=== PATIENT | female | born 1990 | race Caucasian/White ===

== ENCOUNTER 2018-05-07 15:31 | Emergency (ER) | payer MEDICAID, OTHER ==
--- NOTE | 2018-05-07 15:40 | Emergency Department Report ---
Blank Doc - Documentation Documentation: This is a 28-year-old female that presents with HTN and headache. Patient was sent by Dr. Hedrick for r/o preeclampsia. Denies Hx of HTN. was done 04/23/2018. This initial assessment diagnostic orders/clinical plan/treatment(s) is/are subject to change based on patient's health status, clinical progression and re- assessment by fellow clinical providers in the ED. Further treatment and workup at subsequent clinical providers discretion. Patient/guardians urged not to elope from ED s their condition may be serious if not clinically assessed and managed. Initial orders include: 1-Patient sent to MAIN ED for further evaluation and treatment 2- Labs 3- UA
[2018-05-07] MEDS ORDERED: NACL 0.9% 1000 ML 1,000 ML IV ONE (16:52)
[2018-05-07] MEDS ORDERED: TORADOL IV ONE (16:52)
[2018-05-07] MEDS ORDERED: NORMODYNE IV ONE (16:52)
--- NOTE | 2018-05-07 16:55 | Emergency Department Report ---
ED General Adult HPI - General Chief complaint: High BP Stated complaint: HYPERTENSION Time Seen by Provider: 05/07/18 15:37 Source: patient Mode of arrival: Ambulatory Limitations: No Limitations - History of Present Illness Initial comments: Patient is a 28-year-old hyperactive female who is presenting with headache and elevated blood pressure. Patient is 14 days . Patient has a section. Patient states that she was sent home she's had mild headaches and on a follow-up visit today was noted to have elevated blood pressure. Dr. Apple Love the patient to the emergency department to be evaluated. Patient denies nausea vomiting fevers chills or neck stiffness. Patient states her abdominal discomfort is subsiding. She denies any dysuria. Severity scale (0 -10): 0 - Related Data Previous Rx's Medication Instructions Recorded Last Taken Type Ibuprofen [Motrin 600 MG tab] 600 mg PO Q8H PRN #30 tablet 08/11/15 12/23/15 Rx Multivitamin with Iron 1 each PO DAILY #30 tablet 08/11/15 04/24/18 10:00 Rx [Multivitamins with Iron] oxyCODONE /ACETAMINOPHEN [Percocet 1 tab PO Q6HR PRN #30 tablet 08/11/15 04/24/18 22:00 Rx 5/325] Famotidine [Pepcid] 20 mg PO BID #30 tablet 12/23/15 Unknown Rx Ondansetron [Zofran TAB] 4 mg PO Q8HR PRN #20 tablet 12/23/15 Unknown Rx Ferrous Sulfate 325 mg PO BID #30 tablet. 04/23/18 Unknown Rx Ibuprofen [Motrin] 600 mg PO Q8H PRN #30 tablet 04/23/18 Unknown Rx oxyCODONE /ACETAMINOPHEN [Percocet 1 tab PO Q6HR PRN #30 tablet 04/23/18 Unknown Rx 5/325] Labetalol [Normodyne TAB] 200 mg PO BID #30 tablet 05/07/18 Unknown Rx Allergies Allergy/AdvReac Type Severity Reaction Status Date / Time No Known Allergies Allergy Verified 02/02/18 18:43 ED Review of Systems ROS: Stated complaint: HYPERTENSION Other details as noted in HPI Comment: All other systems reviewed and negative ED Past Medical Hx - Past Medical History Hx Hypertension: No Hx Congestive Heart Failure: No Hx Diabetes: No Hx Deep Vein Thrombosis: No Hx Renal Disease: No Hx Sickle Cell Disease: No Hx Seizures: No Hx Asthma: No Hx COPD: No Hx HIV: No Additional medical history: Vaginal delivery x 1, 3 c-sections - Surgical History Additional Surgical History: x 3 - Social History Smoking Status: Never Smoker Substance Use Type: None - Medications Home Medications: Home Medications Medication Instructions Recorded Confirmed Last Taken Type Ibuprofen [Motrin 600 MG tab] 600 mg PO Q8H PRN #30 tablet 08/11/15 04/24/18 12/23/15 Rx Multivitamin with Iron 1 each PO DAILY #30 tablet 08/11/15 04/24/18 04/24/18 10:00 Rx [Multivitamins with Iron] oxyCODONE /ACETAMINOPHEN [Percocet 1 tab PO Q6HR PRN #30 tablet 08/11/15 0 04/24/18 04/24/18 22:00 Rx 5/325] Famotidine [Pepcid] 20 mg PO BID #30 tablet 12/23/15 04/24/18 Unknown Rx Ondansetron [Zofran TAB] 4 mg PO Q8HR PRN #20 tablet 12/23/15 04/24/18 Unknown Rx Ferrous Sulfate 325 mg PO BID #30 tablet. 04/23/18 Unknown Rx Ibuprofen [Motrin] 600 mg PO Q8H PRN #30 tablet 04/23/18 Unknown Rx oxyCODONE /ACETAMINOPHEN [Percocet 1 tab PO Q6HR PRN #30 tablet 04/23/18 Unknown Rx 5/325] Labetalol [Normodyne TAB] 200 mg PO BID #30 tablet 05/07/18 Unknown Rx ED Physical Exam - General Limitations: No Limitations General appearance: alert, in no apparent distress - Head Head exam: Present: atraumatic, normocephalic - Eye Eye exam: Present: normal appearance, PERRL, EOMI - ENT ENT exam: Present: normal orophraynx, mucous membranes moist - Neck Neck exam: Present: normal inspection, full ROM. Absent: tenderness, meningismus - Respiratory Respiratory exam: Present: normal lung sounds bilaterally. Absent: respiratory distress, wheezes, rales, rhonchi, stridor - Cardiovascular Cardiovascular Exam: Present: regular rate, normal rhythm. Absent: systolic murmur, diastolic murmur, rubs, gallop - GI/Abdominal GI/Abdominal exam: Present: soft, normal bowel sounds. Absent: distended, tenderness, guarding, rebound, rigid - Extremities Exam Extremities exam: Present: normal inspection - Back Exam Back exam: Present: normal inspection - Neurological Exam Neurological exam: Present: alert, oriented X3 - Psychiatric Psychiatric exam: Present: normal affect, normal mood - Skin Skin exam: Present: warm, dry, intact, normal color. Absent: rash ED Course Vital Signs 05/07/18 05/07/18 05/07/18 15:38 16:40 16:43 Temperature 98.8 F Pulse Rate 87 89 Respiratory 18 18 Rate Blood Pressure 148/98 151/91 Blood Pressure 151/91 [Left] O2 Sat by Pulse 100 100 100 Oximetry 05/07/18 05/07/18 05/07/18 16:45 17:00 17:15 Temperature Pulse Rate Respiratory Rate Blood Pressure 151/91 154/94 154/94 Blood Pressure [Left] O2 Sat by Pulse 100 100 99 Oximetry 05/07/18 05/07/18 05/07/18 17:29 17:31 17:45 Temperature Pulse Rate 89 Respiratory Rate Blood Pressure 151/91 154/94 154/94 Blood Pressure [Left] O2 Sat by Pulse 98 99 Oximetry 05/07/18 05/07/18 17:58 18:00 Temperature Pulse Rate 87 Respiratory 18 Rate Blood Pressure 119/78 Blood Pressure 119/78 [Left] O2 Sat by Pulse 99 99 Oximetry ED Medical Decision Making - Lab Data Result diagrams: 05/07/18 16:33 05/07/18 16:33 Lab Results 05/07/18 05/07/18 05/07/18 Range/Units 16:33 16:33 16:40 WBC 6.6 (4.5-11.0) K/mm3 RBC 5.21 H (3.65-5.03) M/mm3 Hgb 11.4 (10.1-14.3) gm/dl Hct 35.9 (30.3-42.9) % MCV 69 L (79-97) fl MCH 22 L (28-32) pg MCHC 32 (30-34) % RDW 17.9 H (13.2-15.2) % Plt Count 428 (140-440) K/mm3 Lymph % (Auto) 29.2 (13.4-35.0) % [place] % (Auto) 5.5 (0.0-7.3) % Eos % (Auto) 6.6 H (0.0-4.3) % Baso % (Auto) 0.8 (0.0-1.8) % Lymph # 1.9 (1.2-5.4) K/mm3 [place] # 0.4 (0.0-0.8) K/mm3 Eos # 0.4 (0.0-0.4) K/mm3 Baso # 0.1 (0.0-0.1) K/mm3 Seg Neutrophils % 57.9 (40.0-70.0) % Seg Neutrophils # 3.8 (1.8-7.7) K/mm3 Sodium 141 (137-145) mmol/L Potassium 4.4 (3.6-5.0) mmol/L Chloride 102.5 (98-107) mmol/L Carbon Dioxide 25 (22-30) mmol/L Anion Gap 18 mmol/L BUN 13 (7-17) mg/dL Creatinine 0.6 L (0.7-1.2) mg/dL Estimated GFR > 60 ml/min BUN/Creatinine Ratio 22 % Glucose 78 (65-100) mg/dL Calcium 9.5 (8.4-10.2) mg/dL Magnesium 1.90 (1.7-2.3) mg/dL Total Bilirubin 0.20 (0.1-1.2) mg/dL AST 10 (5-40) units/L ALT 11 (7-56) units/L Alkaline Phosphatase 95 (35-129) units/L Total Protein 7.9 (6.3-8.2) g/dL Albumin 3.9 (3.9-5) g/dL Albumin/Globulin Ratio 1.0 % Urine Color Straw (Yellow) Urine Turbidity Clear (Clear) Urine pH 5.0 (5.0-7.0) Ur Specific [place] 1.017 (1.003-1.030) Urine Protein <15 mg/dl (Negative) mg/dL Urine Glucose (UA) Neg (Negative) mg/dL Urine Ketones Neg (Negative) mg/dL Urine Blood Mod (Negative) Urine Nitrite Neg (Negative) Urine Bilirubin Neg (Negative) Urine Urobilinogen < 2.0 (<2.0) mg/dL Ur Leukocyte Esterase Neg (Negative) Urine WBC (Auto) 1.0 (0.0-6.0) /HPF Urine RBC (Auto) 2.0 (0.0-6.0) /HPF U Epithel Cells (Auto) < 1.0 (0-13.0) /HPF Urine Mucus Few /HPF - Medical Decision Making Patient is a 28-year-old female who is presenting with mild headache and elevated blood pressure. Blood pressure was controlled here in the emergency department. Patient has no protein in her urine at this time. Patient's case was discussed with Dr. Crow who is covering for Dr. Hedrick. Patient to be seen in their office in 2-3 days. Patient to be started on labetalol 200 mg twice a day. Patient discharged in stable condition. Critical care attestation.: If time is entered above; I have spent that time in minutes in the direct care of this critically ill patient, excluding procedure time. ED Disposition Clinical Impression: Hypertension affecting , antepartum Disposition: DC-01 TO HOME OR SELFCARE Is pt being admited?: No Does the pt Need Aspirin: No Condition: Stable Instructions: Hypertension (ED) Prescriptions: Labetalol [Normodyne TAB] 200 mg PO BID #30 tablet Time of Disposition: 18:18
[2018-05-07 17:03] LABS: Basophils # (Auto) 0.1 K/mm3 (0.0-0.1); Basophils % (Auto) 0.8 % (0.0-1.8); Eosinophils # (Auto) 0.4 K/mm3 (0.0-0.4); Eosinophils % (Auto) 6.6 % (0.0-4.3); Hematocrit 35.9 % (30.3-42.9); Hemoglobin 11.4 gm/dl (10.1-14.3); Lymphocytes # (Auto) 1.9 K/mm3 (1.2-5.4); Lymphocytes % (Auto) 29.2 % (13.4-35.0); Mean Corpuscular HGB Conc 32 % (30-34); Monocytes # (Auto) 0.4 K/mm3 (0.0-0.8); Monocytes % (Auto) 5.5 % (0.0-7.3); Platelet Count 428 K/mm3 (140-440); Red Blood Count 5.21 M/mm3 (3.65-5.03); Red Cell Distribution Width 17.9 % (13.2-15.2)
[2018-05-07 17:05] LABS: Bilirubin,Urine NEG (Negative); Blood,Urine MOD (Negative); Color,Urine Straw (Yellow); Mucus,Urine FEW /HPF; Protein,Urine <15 mg/dL mg/dL (Negative); Urobilinogen,Urine < 2.0 mg/dL (<2.0)
[2018-05-07 17:09] LABS: Mean Corpuscular Volume 69 fl (79-97)
[2018-05-07 17:44] LABS: Alanine Aminotransferase 11 units/L (7-56); Albumin 3.9 g/dL (3.9-5); BUN/Creatinine Ratio 22; Blood Urea Nitrogen 13 mg/dL (7-17); Calcium 9.5 mg/dL (8.4-10.2); Hemolysis Index 0
[2018-05-07 18:07] VITALS: BP 119/78
== END 2018-05-07 18:25 | disposition home or self-care (01) ==
LOC: ED 15:31
DX: O13.4 Gestational [pregnancy-induced] hypertension without significant proteinuria, complicating childbirth (principal); Z3A.49 Greater than 42 weeks gestation of pregnancy
CPT/HCPCS: 36415; 80053; 81001; 83735; 85025; 96374; 96375; 99284; J1885; J7030

== ENCOUNTER 2021-11-10 06:33 | Emergency (ER) | payer MEDICAID, OTHER ==
[2021-11-10] MEDS ORDERED: CLINDAMYCIN 150 MG/ML VIAL 6 ML IM ONE (08:19)
[2021-11-10 09:07] LABS: Mucus,Urine FEW /HPF
[2021-11-10 09:10] LABS: Amphetamine Screen,Urine Negative; Benzodiazepines Screen,Urine Negative; Cannabinoid Screen,Urine Negative; Cocaine Screen,Urine Negative; Methadone Screen,Urine Negative; Opiate Screen,Urine Negative
[2021-11-10] MEDS ORDERED: LORazepam 1 MG TAB PO ONE (09:11)
[2021-11-10 09:16] LABS: Color,Urine Yellow (Yellow)
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
== END 2021-11-10 14:51 | disposition home or self-care (01) ==
LOC: ED 06:33
DX: T76.21XA Adult sexual abuse, suspected, initial encounter (principal); F41.9 Anxiety disorder, unspecified; Z98.890 Other specified postprocedural states; Z72.89 Other problems related to lifestyle; Z79.899 Other long term (current) drug therapy; X58.XXXA Exposure to other specified factors, initial encounter; Y93.89 Activity, other specified; Y92.89 Other specified places as the place of occurrence of the external cause; Y99.8 Other external cause status
CPT/HCPCS: 80307; 81001; 87086; 99283